=== PATIENT | female | born 1990 | race African-American/Black ===

== ENCOUNTER 2020-04-24 21:25 | Outpatient (CLI) | payer OTHER ==
[2020-04-24 22:06] LABS: APPEARANCE,URINE CLOUDY; BILIRUBIN,URINE NEGATIVE (NEGATIVE); COLOR,URINE YELLOW; GLUCOSE, URINE >=500 mg/dL (NEGATIVE); KETONES,URINE 20 mg/dL (NEGATIVE); LEUKOCYTE ESTERASE,URINE SMALL (NEGATIVE); NITRITE,URINE NEGATIVE (NEGATIVE); PROTEIN,URINE 100 mg/dL (NEGATIVE); URINE SPECIFIC GRAVITY 1.036
[2020-04-24 22:25] LABS: URINE AMPHETAMINES SCREEN NEGATIVE; URINE BARBITURATES SCREEN NEGATIVE; URINE BENZODIAZEPINES SCREEN NEGATIVE; URINE COCAINE SCREEN NEGATIVE; URINE MARIJUANA (THC) SCREEN NEGATIVE; URINE METHADONE SCREEN NEGATIVE; URINE PHENCYCLIDINE SCREEN NEGATIVE
[2020-04-24] MEDS ORDERED: HYDROXYZINE PAMOATE 50 MG CAPSULE PO ONE (22:49)
[2020-04-24] MEDS ORDERED: HYDROXYZINE PAMOATE 50 MG CAPSULE ONE (22:53)
== END 2020-04-24 23:00 | disposition home or self-care (01) ==
LOC: LC 21:25
PROVIDERS: ATTEND Obstetrics & Gynecology Gynecology
DX: O47.1 False labor at or after 37 completed weeks of gestation (principal); Z3A.38 38 weeks gestation of pregnancy
CPT/HCPCS: 59025; 80307; 81005

== ENCOUNTER 2020-04-27 09:45 | Inpatient (IN) | payer OTHER ==
[2020-04-27] MEDS ORDERED: LIDOCAINE 1% INJ-PF (10 MG/ML) 30 ML SDV ONE (09:56)
[2020-04-27] MEDS ORDERED: OXYTOCIN 10 UNIT/ML VIAL ONE ×2 (09:56→14:46)
[2020-04-27] MEDS ORDERED: OXYTOCIN/0.9 % SODIUM CHLORIDE 30 UNIT/500 ML RTUINJ ONE (09:56)
[2020-04-27] MEDS ORDERED: MISOPROSTOL 0.2 MG TABLET ONE (09:56)
[2020-04-27] MEDS ORDERED: OXYTOCIN/0.9 % SODIUM CHLORIDE 30 UNIT/500 ML RTUINJ IV PRN ×2 (10:23→15:09)
[2020-04-27] MEDS ORDERED: RINGERS SOLUTION,LACTATED 1,000 ML IV PRN ×2 (10:27→15:09)
[2020-04-27 10:57] LABS: APPEARANCE,URINE SLIGHTLY-CLOUDY; BILIRUBIN,URINE NEGATIVE (NEGATIVE); COLOR,URINE YELLOW; GLUCOSE, URINE NEGATIVE (NEGATIVE); KETONES,URINE NEGATIVE (NEGATIVE); LEUKOCYTE ESTERASE,URINE TRACE (NEGATIVE); NITRITE,URINE NEGATIVE (NEGATIVE); PROTEIN,URINE 30 mg/dL (NEGATIVE); URINE SPECIFIC GRAVITY 1.012; UROBILINOGEN,URINE NEGATIVE mg/dL (<2.0)
[2020-04-27 11:23] LABS: URINE AMPHETAMINES SCREEN NEGATIVE; URINE BARBITURATES SCREEN NEGATIVE; URINE BENZODIAZEPINES SCREEN NEGATIVE; URINE COCAINE SCREEN NEGATIVE; URINE MARIJUANA (THC) SCREEN NEGATIVE; URINE METHADONE SCREEN NEGATIVE; URINE PHENCYCLIDINE SCREEN NEGATIVE
--- NOTE | 2020-04-27 11:36 | Admission Physical ---
Datetime Report Generated by CPN: 04/27/2020 11:35 CURRENT ADMISSION Indication for Induction: Maternal Diabetes Admit Impression : Term, Intrauterine ; No Active Labor Admit Plan: Admit to Unit; Initiate Labor Induction Protocol ALLERGIES Medication Allergies: No Medication Allergies: No Known Allergies (04/24/2020) Latex: No Latex Allergies Food Allergies: none Environmental Allergies: none OBSTETRICAL HISTORY EDC: 05/02/2020 00:00 : 3 Para: 2 : 0 Gestational Diabetes: Yes Rh Sensitization: No Incompetent Cervix: No RADHAMES: No Infertility: No ART Treatment: No Uterine Anomaly: No IUGR: No Hx Previous C/S: No Macrosomia: No Hx Loss/Stillborn: No PIH: No Hx : No Placenta Previa/Abruption: No Depression/PP Depression: No PTL/PROM: No Post Hemorrhage: No Current Procedures: Ultrasound; NST Obstetrical History Comments: 2014 G3- Current SEE RECORDS Alcohol: No Marijuana : No Cocaine: No Other Illicit Drugs: No Cigarettes: Never Smoker. 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 Heart Disease: No Hosp/Surgery: Yes Autoimmune Disorder: No Anesthetic Complications: No Kidney Disease: No Abnormal Pap Smear: No Neuro/Epilepsy: No Psychiatric Disorders: No Other Medical Diseases: No Hepatitis/Liver Disease: No Significant Family History: No Varicosities/Phlebitis: No Trauma/Violence : No Thyroid Dysfunction: No Medical History Comments: wisdom teeth x 2 in 2008 and 2011 and surgery on wrist in 2016 INFECTIOUS HISTORY Gonorrhea: No Genital Herpes: Yes Chlamydia: No Tuberculosis: No Syphilis: No Hepatitis: No HIV/AIDS Exposure: No Rash or Viral Illness: No HPV: No Infectious History Comments: Pt on Valtrex PHYSICAL EXAM General: Normal HEENT: Normal Neurologic: Normal Thyroid: Normal Heart: Normal Lungs: Normal Breast: Normal Back: Normal Abdomen: Normal Genitourinary Exam: Normal Extremities: Normal DTRs: Normal Pelvic Type: Adequate Vital Signs: Reviewed; Within Normal Limits VAGINAL EXAM Dilatation: 1 Effacement: 70 Station: -2 Contraction Comments: q8 MEMBRANES Membranes: Intact FETUS A Monitoring: External US FHR- Baseline: 145 Variability: Moderate 6-25bpm Accelerations: 10X10 Decelerations: Variable FHR Comments: variable decel x one when placed on EFM Admit Comment: presents at 39. 2 wks for IOL. Hx GDM. Pt doing well this morning, no c/o SROM or contractions. GBS negative. Attending MD is Dr Oliveira, Pt plans an epidural when in labor. Will start Pitocin then AROM on cervical change is made. PLANS FOR LABOR AND DELIVERY Labor and Delivery: None Pain Management: Epidural Feeding Preference: Breast Benefit of Breast Feed Discussed: Yes Circumcision: N/A INFORMED CONSENT Assignment: Rossi Oliveira MD Signature: with User ID: [email or web address] : with User ID: [email or web address]
[2020-04-27 11:46] LABS: ABSOLUTE LYMPHOCYTES (AUTO) 1.5 10^3/uL (0.5-4.7); ABSOLUTE NEUT (AUTO) 4.4 10^3/uL (1.7-8.2); BASOPHILS % (AUTO) 0.5 % (0-2); EOSINOPHILS % (AUTO) 0.5 % (0-6); HEMATOCRIT 29.6 % (36.0-47.0); HEMOGLOBIN 9.6 g/dL (12.0-15.5); LYMPHOCYTES % (AUTO) 22.7 % (13-45); MEAN CORPUSCULAR HEMOGLOBIN 25.8 pg (27.0-33.4); MEAN CORPUSCULAR HGB CONC 32.4 g/dL (32.0-36.0); MEAN CORPUSCULAR VOLUME 80 fl (80-97); MONOCYTES % (AUTO) 11.4 % (3-13); PLATELET COUNT 200 10^3/uL (150-450); RED BLOOD COUNT 3.72 10^6/uL (3.72-5.28); RED CELL DISTRIBUTION WIDTH 18.6 % (11.5-14.0); SEGMENTED NEUTROPHILS % (AUTO) 64.9 % (42-78); TOTAL CELLS COUNTED % (AUTO) 100 %; WHITE BLOOD COUNT 6.7 10^3/uL (4.0-10.5)
[2020-04-27 11:47] LABS: ABSOLUTE MONOCYTES (AUTO) 0.8 10^3/uL (0.1-1.4)
--- NOTE | 2020-04-27 14:02 | L&D Progress Notes ---
PROGRESS NOTES Datetime Report Generated by CPN: 04/27/2020 14:02 PROGRESS NOTE Impression: Reassuring Heart Rate Plan: Continue Present Management; Induction Vital Signs : Reviewed; Within Normal Limits Comment: Occassional variable decels. Will attempt to start Pitocin, will go in and attmept AROM and may place internal monitors. Position changes encouraged. Dr Oliveira aware of variable decels and going in room to check patient VAGINAL EXAM Dilatation: 1 Effacement: 70 Station: -2 Contractions: q8 LAST VAGINAL EXAM-NURSING Nursing Exam Dilitation: 1.0 Nursing Exam Effacement: 70 Nursing Exam Station: -2 Nursing Exam Contractions: toco being adjusted MEMBRANES Membranes: Intact FETUS A FHR - Baseline: 140 Monitoring: External US Variability: Moderate 6-25bpm Accelerations: 10X10 Decelerations: Variable SIGNATURE SIGNATURE: [id number];[id number];[id number] Assignment: Rossi Oliveira MD Signature: with User ID: [email or web address] : with User ID: [email or web address]
[2020-04-27] MEDS ORDERED: CEFAZOLIN 1 GM/D5W RTU 2 GM/100 ML RTUPB IV ONE (14:23)
[2020-04-27] MEDS ORDERED: CITRIC ACID/SODIUM CITRATE ORAL SOLN 15 ML UDCUP ONE (14:23)
[2020-04-27] MEDS ORDERED: CEFAZOLIN SODIUM 2 GM in DEXTROSE 5%-WATER 50 ML IV PRN (14:32)
[2020-04-27] MEDS ORDERED: ACETAMINOPHEN 1,000 MG/100 ML RTUPB IV ONE (14:47)
[2020-04-27] MEDS ORDERED: ONDANSETRON HCL INJ/PF 4 MG/2 ML SDV ONE (14:47)
[2020-04-27] MEDS ORDERED: FENTANYL CITRATE INJ/PF 100 MCG/2 ML AMPUL ONE (14:47)
[2020-04-27] MEDS ORDERED: KETOROLAC TROMETHAMINE INJ/PF 30 MG/1 ML SDV ONE (14:47)
[2020-04-27] MEDS ORDERED: CEFAZOLIN 1 GM/D5W RTU 1 GM/50 ML RTUPB IV ONE (14:47)
[2020-04-27] MEDS ORDERED: PROMETHAZINE HCL INJ 25 MG/1 ML VIAL IV PRN ×2 (15:09→16:45)
[2020-04-27] MEDS ORDERED: MORPHINE SULFATE 10 MG/ML INJ IM PRN (15:09)
[2020-04-27] MEDS ORDERED: MEASLES,MUMPS&RUBELLA VACC/PF 0.5 ML VIAL SUBCUT PRN (15:09)
[2020-04-27] MEDS ORDERED: OXYCODONE-ACETAMINOPHEN 5-325 MG TABLET PO PRN (15:09)
[2020-04-27] MEDS ORDERED: DIPH/PERTUSS(ACELL)/TETANUS VAC/PF 0.5 ML SYR (>=10YO) IM PRN (15:09)
[2020-04-27] MEDS ORDERED: ACETAMINOPHEN 1,000 MG/100 ML RTUPB IV PRN (15:09)
--- NOTE | 2020-04-27 16:04 | Operative Report ---
Operative Report DATE OF SURGERY: 04/27/20 PREOPERATIVE DIAGNOSIS: IUP at 39 weeks and 2 days, persistent category 2 strip POSTOPERATIVE DIAGNOSIS: Same OPERATION: Primary low transverse hysterotomy section SURGEON: VINITA LENTZ ANESTHESIA: Spinal ESTIMATED BLOOD LOSS: 800 cc INTRAOPERATIVE FINDINGS: Female infant cephalic presentation Apgars 8 and 8, weight 8 pounds 15 ounces PROCEDURE: PROCEDURE IN DETAIL: The patient was taken to the operating room, prepared and draped in a normal sterile fashion in a supine position with a leftward tilt. A transverse skin incision was made with a scalpel and carried through to the underlying layer of fascia with the same scalpel. The fascia was excised in the midline and extended laterally with Daphnie. The fascia was then dissected from the rectus muscle sharply with Daphnie and the rectus muscle was divided and the peritoneal cavity was entered sharply with the same Metzenbaum. With good visualization of the bladder and the uterus the bladder blade was inserted. The hysterotomy was nicked with a scalpel and extended laterally with surgeon finger fraction. The was then delivered atraumatically. The nose and mouth were suctioned with a suction bulb, the cord was clamped and cut and handed off to awaiting pediatricians. Cord blood was collected. The placenta was removed manually. The uterus was exteriorized and cleared of clots and debris. The hysterotomy was closed with 0 Monocryl in a running, locked fashion. A second layer of the same suture was used to imbricate to ensure hemostasis. The uterus was returned to the abdomen and peritoneal cavity was cleared of clots and debris. The rectus muscle and peritoneum were repaired with mattress stitch of 2-0 Chromic. The fascia was closed with 0-Vicryl. The subcutaneous layer was closed with plain catgut and the skin was closed with 4-0 Vicryl. The patient tolerated the procedure well. Sponge, lap, and needle counts correct x2 and the patient was taken to recovery in stable condition.
--- NOTE | 2020-04-27 16:11 | Warning Signs in Babies ---
VOD Warning Signs Datetime Report Generated by [facility]: 04/27/2020 16:10 VOD#608 -Warning Signs in Babies: Needs to be viewed. (04/27/2020 15:54:Elmo Ross RN)
[2020-04-27] MEDS ORDERED: FENTANYL CITRATE INJ/PF 100 MCG/2 ML AMPUL IV PRN ×3 (16:43)
[2020-04-27] MEDS ORDERED: MORPHINE SULFATE 10 MG/ML INJ IV PRN (16:44)
[2020-04-27] MEDS ORDERED: ONDANSETRON HCL INJ/PF 4 MG/2 ML SDV IV PRN (16:45)
[2020-04-27] MEDS ORDERED: MEPERIDINE HCL/PF INJ 25 MG/1 ML DISP.SYRIN IV PRN (16:46)
[2020-04-27] MEDS ORDERED: LABETALOL HCL INJ 20 MG/4 ML DISP.SYRIN IV PRN (16:46)
[2020-04-27] MEDS ORDERED: DIPHENHYDRAMINE HCL 50 MG/ML VIAL IV PRN (16:47)
[2020-04-27] MEDS ORDERED: OXYCODONE-ACETAMINOPHEN 5-325 MG TABLET ONE (17:51)
[2020-04-27] MEDS ORDERED: MORPHINE SULFATE 10 MG/ML INJ ONE (17:54)
[2020-04-27] MEDS: DOCUSATE SODIUM 100 MG CAPSULE PO SCH (20:42)
[2020-04-27] MEDS: OXYCODONE-ACETAMINOPHEN 5-325 MG TABLET PO PRN (20:51)
[2020-04-27] MEDS: KETOROLAC TROMETHAMINE INJ/PF 30 MG/1 ML SDV IV SCH (21:59)
[2020-04-28] MEDS: IBUPROFEN 800 MG TABLET PO SCH ×5 (05:20→21:28)
[2020-04-28] MEDS: KETOROLAC TROMETHAMINE INJ/PF 30 MG/1 ML SDV IV SCH ×2 (06:16→14:38)
[2020-04-28 06:22] LABS: HEMATOCRIT 26.8 % (36.0-47.0); HEMOGLOBIN 8.9 g/dL (12.0-15.5); MEAN CORPUSCULAR HEMOGLOBIN 26.3 pg (27.0-33.4); MEAN CORPUSCULAR VOLUME 80 fl (80-97); PLATELET COUNT 176 10^3/uL (150-450); RED BLOOD COUNT 3.37 10^6/uL (3.72-5.28); WHITE BLOOD COUNT 9.8 10^3/uL (4.0-10.5)
[2020-04-28] MEDS: PRENATAL VITAMIN W DHA CAPSULE PO SCH (09:22)
[2020-04-28] MEDS: DOCUSATE SODIUM 100 MG CAPSULE PO SCH ×2 (09:22→17:26)
--- NOTE | 2020-04-28 10:22 | PDOC PROGRESS REPORT ---
Subjective-OB Progress Note for:: 04/28/20 - POD #1, s/p primary . HX of GDM, baby transferred down to [facility] after delivery. pt is pumping breastmilk, UOB. voiding, A+. Rubella Immune Physical Exam (OB) Vital Signs: Temp Pulse Resp BP Pulse Ox 98.4 F 73 18 111/69 99 04/28/20 07:48 04/28/20 07:48 04/28/20 07:48 04/28/20 07:48 04/28/20 07:48 Intake & Output 04/27/20 04/28/20 04/29/20 06:59 06:59 06:59 Intake Total 1000 240 Output Total 1200 750 Balance -200 -510 Weight 95.6 kg - General General Appearance: Appears well, Alert In distress: None - PIH/Pre-Eclampsia Clonus: Negative Headache: Absent Epigastric Pain: No Visual Changes: No - Dressing Removed: No Incision: Dressing Closure Type: opsite - Lochia Lochia Amount: Scant < 10 ml Lochia Color: Rubra/Red - Abdomen Description: Soft Hernia Present: No Fundal Description: Firm, Midline Fundal Height: u/u - u/2 - Respiratory Respiratory Status: No respiratory distress - Abdominal Abdominal Notes: states passing gas - Genitourinary Genitourinary Note: voiding - Extremities Upper extremity: Normal inspection Lower extremities: Edema - Neurological Cognition: Normal Orientation: AAOx4 - Psychological Associated symptoms: Normal affect, Normal mood - Skin Skin Temperature: Warm Skin Moisture: Dry Objective-Diagnostic Laboratory: 04/28/20 06:15 04/27/20 04/27/20 04/27/20 10:35 11:12 11:12 WBC 6.7 RBC 3.72 Hgb 9.6 L Hct 29.6 L MCV 80 MCH 25.8 L MCHC 32.4 RDW 18.6 H Plt Count 200 Seg Neutrophils % 64.9 Urine Color YELLOW Urine Appearance SLIGHTLY-CLOUDY Urine pH 7.0 Ur Specific [place] 1.012 Urine Protein 30 H Urine Glucose (UA) NEGATIVE Urine Ketones NEGATIVE Urine Blood NEGATIVE Urine Nitrite NEGATIVE Ur Leukocyte Esterase TRACE H Blood Type A POSITIVE Antibody Screen NEGATIVE 04/28/20 06:15 WBC 9.8 RBC 3.37 L Hgb 8.9 L Hct 26.8 L MCV 80 MCH 26.3 L MCHC 33.0 RDW 19.0 H Plt Count 176 Seg Neutrophils % Urine Color Urine Appearance Urine pH Ur Specific [place] Urine Protein Urine Glucose (UA) Urine Ketones Urine Blood Urine Nitrite Ur Leukocyte Esterase Blood Type Antibody Screen Assessment and Plan(PN) - Assessment and Plan (1) Status post primary low transverse section Is this a current diagnosis for this admission?: Yes (2) intolerance to labor, delivered, current hospitalization Is this a current diagnosis for this admission?: Yes (3) Diet controlled gestational diabetes mellitus Qualifiers: Trimester: third trimester Qualified Code(s): O24.410 - Gestational diabetes mellitus in , diet controlled Is this a current diagnosis for this admission?: Yes Plan:: ambulation encouraged, Routine Post Op and PP orders - Time Spent with Patient Time with patient: Less than 15 minutes - Disposition Anticipated Discharge: Home Within: within 24 hours
[2020-04-28] MEDS: OXYCODONE-ACETAMINOPHEN 5-325 MG TABLET PO PRN ×2 (11:12→19:13)
[2020-04-28] MEDS: SIMETHICONE 80 MG TAB.CHEW PO PRN ×2 (11:14→23:20)
[2020-04-29] MEDS: OXYCODONE-ACETAMINOPHEN 5-325 MG TABLET PO PRN (04:41)
[2020-04-29] MEDS: SIMETHICONE 80 MG TAB.CHEW PO PRN (05:14)
[2020-04-29] MEDS: IBUPROFEN 800 MG TABLET PO SCH (05:14)
[2020-04-29 09:23] VITALS: BP 130/78
--- NOTE | 2020-04-29 09:52 | PDOC DISCHARGE SUMMARY ---
Impression - Admit/DC Date/PCP Admission Date/Primary Care Provider: 04/27/20 09:45 DELPHINE TORRES MD Discharge Date: 04/29/20 - POD #2, doing well, desires to go home today. BAby transferred down to [facility] for blood sugar control. Pt w/ hx GDM, Primary d/t intolerance to labor. A+, rubella immune, pumping breastmilk - Discharge Diagnosis (1) Status post primary low transverse section Is this a current diagnosis for this admission?: Yes (2) intolerance to labor, delivered, current hospitalization Is this a current diagnosis for this admission?: Yes (3) Diet controlled gestational diabetes mellitus Is this a current diagnosis for this admission?: Yes (4) Acute blood loss as cause of postoperative anemia Is this a current diagnosis for this admission?: Yes - Additional Information Resuscitation Status: Full Code Discharge Diet: As Tolerated, Regular Discharge Activity: Activity As Tolerated, No Driving, No Lifting Over 10 Pounds, Pelvic Rest Referrals: DELPHINE TORRES MD [Primary Care Provider] - Prescriptions: Ibuprofen [Motrin 800 mg Tablet] 800 mg PO Q8 #60 tablet Oxycodone HCl/Acetaminophen [Percocet 5-325 mg Tablet] 1 tab PO Q4HP PRN #30 tablet PRN Reason: Pain Scale Of 4 Home Medications: Ferrous Gluconate [Iron] 240 mg PO DAILY 04/24/20 Vit,Calc76/Iron/Folic [Prenatabs Rx Tablet] 1 tab PO DAILY 04/24/20 Ibuprofen [Motrin 800 mg Tablet] 800 mg PO Q8 #60 tablet 04/29/20 Oxycodone HCl/Acetaminophen [Percocet 5-325 mg Tablet] 1 tab PO Q4HP PRN #30 tablet 04/29/20 HPI Reason(s) for Admission: Induction of Labor, Gestional Diabetes Procedures: Management of Obstetric Complications Intrapartum Procedure(s): : Low Cervical, Transverse Hospital Course Hospital Course: stable, no problems Results Laboratory Results: WBC 9.8 10^3/uL (4.0-10.5) 04/28/20 06:15 RBC 3.37 10^6/uL (3.72-5.28) L 04/28/20 06:15 Hgb 8.9 g/dL (12.0-15.5) L 04/28/20 06:15 Hct 26.8 % (36.0-47.0) L 04/28/20 06:15 MCV 80 fl (80-97) 04/28/20 06:15 MCH 26.3 pg (27.0-33.4) L 04/28/20 06:15 MCHC 33.0 g/dL (32.0-36.0) 04/28/20 06:15 RDW 19.0 % (11.5-14.0) H 04/28/20 06:15 Plt Count 176 10^3/uL (150-450) 04/28/20 06:15 Lymph % (Auto) 22.7 % (13-45) 04/27/20 11:12 [place] % (Auto) 11.4 % (3-13) 04/27/20 11:12 Eos % (Auto) 0.5 % (0-6) 04/27/20 11:12 Baso % (Auto) 0.5 % (0-2) 04/27/20 11:12 Absolute Neuts (auto) 4.4 10^3/uL (1.7-8.2) 04/27/20 11:12 Absolute Lymphs (auto) 1.5 10^3/uL (0.5-4.7) 04/27/20 11:12 Absolute Monos (auto) 0.8 10^3/uL (0.1-1.4) 04/27/20 11:12 Absolute Eos (auto) 0.0 10^3/uL (0.0-0.6) 04/27/20 11:12 Absolute Basos (auto) 0.0 10^3/uL (0.0-0.2) 04/27/20 11:12 Seg Neutrophils % 64.9 % (42-78) 04/27/20 11:12 POC Glucose 117 mg/dL (70-110) H 04/27/20 11:59 Urine Color YELLOW 04/27/20 10:35 Urine Appearance SLIGHTLY-CLOUDY 04/27/20 10:35 Urine pH 7.0 (5.0-9.0) 04/27/20 10:35 Ur Specific [place] 1.012 04/27/20 10:35 Urine Protein 30 mg/dL (NEGATIVE) H 04/27/20 10:35 Urine Glucose (UA) NEGATIVE mg/dL (NEGATIVE) 04/27/20 10:35 Urine Ketones NEGATIVE mg/dL (NEGATIVE) 04/27/20 10:35 Urine Blood NEGATIVE (NEGATIVE) 04/27/20 10:35 Urine Nitrite NEGATIVE (NEGATIVE) 04/27/20 10:35 Urine Bilirubin NEGATIVE (NEGATIVE) 04/27/20 10:35 Urine Urobilinogen NEGATIVE mg/dL (<2.0) 04/27/20 10:35 Ur Leukocyte Esterase TRACE (NEGATIVE) H 04/27/20 10:35 Urine Ascorbic Acid NEGATIVE (NEGATIVE) 04/27/20 10:35 Urine Opiates Screen NEGATIVE 04/27/20 10:35 Urine Methadone Screen NEGATIVE 04/27/20 10:35 Ur Barbiturates Screen NEGATIVE 04/27/20 10:35 Ur Phencyclidine Scrn NEGATIVE 04/27/20 10:35 Ur Amphetamines Screen NEGATIVE 04/27/20 10:35 U Benzodiazepines Scrn NEGATIVE 04/27/20 10:35 Urine Cocaine Screen NEGATIVE 04/27/20 10:35 U Marijuana (THC) Screen NEGATIVE 04/27/20 10:35 SARS-CoV-2 (PCR) NEGATIVE (NEGATIVE) 04/27/20 18:08 Blood Type A POSITIVE 04/27/20 11:12 Antibody Screen NEGATIVE 04/27/20 11:12 Plan Health Concerns: needs Iron rich foods Plan of Treatment: d/c home, pt to f/up in one week for incision check at [facility] Time Spent: Less than 30 Minutes
[2020-04-29] MEDS: PRENATAL VITAMIN W DHA CAPSULE PO SCH (10:36)
[2020-04-29] MEDS: DOCUSATE SODIUM 100 MG CAPSULE PO SCH (10:36)
--- NOTE | 2020-05-01 10:50 | Delivery Summary ---
Del Sum A-C Datetime Report Generated by CPN: 05/01/2020 10:50 DELIVERY PERSONNEL DELIVERY PERSONNEL: [id number] Delivery Doctor:: Rossi Oliveira MD BOMBSIGHT SPECIALIST:: Hemalatha Potter CRNA Labor and Delivery Nurse:: MARCELINO Simmons Sprinkling System Installer:: Elmo Ross RN Neonatal Nurse Practitioner:: BOBBY Mcqueen Nursery Nurse:: Millicent Briseno RN Button Spindler/JET MECHANIC: Sina Kapadia CST Button Spindler/JET MECHANIC: Nela Wei, TRANSPORTATION AGENT MATERNAL INFORMATION Delivery Anesthesia: Spinal Medications During Delivery: Pitocin 30 units per 500 of NS, by BOMBSIGHT SPECIALIST Medications After Delivery: Other-Please Comment Meds After Delivery Comment: see anesthesia record Delivery QBL: 1023 Maternal Complications: None LABOR SUMMARY EDC: 05/02/2020 00:00 No. Babies in Womb: 1 LABOR INFORMATION Group B Beta Strep: Negative MEMBRANES Membranes Rupture Method: Artificial Rupture of Membranes: 04/27/2020 14:02 Length of Rupture (hr): 1.22 Amniotic Fluid Color: Clear Amniotic Fluid Amount: Moderate Amniotic Fluid Odor: Normal STAGES OF LABOR Stage 3 hr: 0 Stage 3 min: 0 CSECTION DELIVERY CSection Incision: Lower Uterine Transverse BABY A INFORMATION Infant Delivery Date/Time: 04/27/2020 15:15 Method of Delivery: Nurse Controlled Delivery: No Born in Route : No : N/A Forceps: N/A Vacuum Extraction: N/A Shoulder Dystocia : No PRESENTATION/POSITION BABY A Presentation: Cephalic Cephalic Presentation: Vertex Breech Presentation: N/A PLACENTA INFORMATION BABY A Placenta Delivery Time : 04/27/2020 15:15 Placenta Method of Delivery: Manual Removal Placenta Status: Delivered SCORES BABY A Heart Rate 1 min: >100 bpm Resp Effort 1 min: Good Cry Reflex Irritability 1 min: Cough or Sneeze or Pulls Away Muscle Tone 1 min: Active Motion Color 1 min: Blue/Pale SCORE 1 MIN: 8 Heart Rate 5 min: >100 bpm Resp Effort 5 min: Good Cry Reflex Irritability 5 min: Cough or Sneeze or Pulls Away Muscle Tone 5 min: Active Motion Color 5 min: Blue/Pale SCORE 5 MIN: 8 INFANT INFORMATION BABY A Gestational Age at Delivery: 39.2 Gestational Status: Full Term- 39- 40.6 Weeks Outcome : Liveborn Condition : Stable Infant Sex: Female WEIGHT/LENGTH BABY A Birthweight (gm): 4054 Infant Weight (lb): 8 Infant Weight (oz): 15 Infant Length (in): 21.00 Length (cm): 53.34 CORD INFORMATION BABY A No. Cord Vessels: 3 Cord Blood Taken: Yes-For Storage (Mom's Blood type +) Suction: Mouth; Nose ASSESSMENT BABY A Respirations: Grunting; Intercostal Retractions Skin to Skin: No Infant Care By: Millicent Briseno, RN, Redfield Jovani Transferred To: NICU RESUSCITATION BABY A Resuscitation Effort: see nursery notes
== END 2020-04-29 11:17 | disposition home or self-care (01) | DRG 787 ==
LOC: LR 09:45 → 2S 19:55
PROVIDERS: ADMIT Obstetrics & Gynecology; ATTEND Obstetrics & Gynecology
PROC: 10D00Z1 Extraction of Products of Conception, Low, Open Approach (ICD-10-PCS; principal; 2020-04-27)
DX: O24.429 Gestational diabetes mellitus in childbirth, unspecified control (principal); O98.32 Other infections with a predominantly sexual mode of transmission complicating childbirth; D62 Acute posthemorrhagic anemia; O24.420 Gestational diabetes mellitus in childbirth, diet controlled; Z37.0 Single live birth; A60.00 Herpesviral infection of urogenital system, unspecified; Z79.899 Other long term (current) drug therapy; O76 Abnormality in fetal heart rate and rhythm complicating labor and delivery; Z3A.39 39 weeks gestation of pregnancy; O99.02 Anemia complicating childbirth; Z03.818 Encounter for observation for suspected exposure to other biological agents ruled out
CPT/HCPCS: 1961; 36415; 80307; 81005; 82962; 85025; 85027; 86592; 86850; 86900; 86901; 87635; 94760; 94799; 99140; C9803; J0131; J0690; J1885; J2270; J2405; J2590; J3010; J3490; J7120